=== PATIENT | female | born 1995 | race Caucasian/White ===

== ENCOUNTER 2018-03-12 09:10 | Outpatient (CLI) | payer OTHER ==
[~2018-03-12] VITALS: Ht 170.2 cm; Wt 141.2 kg
[~2018-03-12 09:10] MED LIST: MAG-OX 400400 MG/TAB PO; PROZAC 20MG20 MG PO; ZANAFLEX 4MG TAB4 MG PO
[2018-03-12 09:37] VITALS: BP 135/74; PULSE 83
[2018-03-12 10:25] VITALS: BP 107/70; PULSE 64
[2018-03-12 10:55] LABS: CSF APPEARANCE CLEAR; CSF COLOR COLORLESS; CSF RBC 0 /mm3 (0-0)
[2018-03-12 11:06] LABS: GLUCOSE,CSF 56 mg/dL (40-70); TOTAL PROTEIN,CSF 27 mg/dL (15-45)
[2018-03-12 11:11] LABS: CSF MONONUCLEAR 100 % (70-100); CSF POLYMORPHONUCLEAR 0 % (0-6)
== END 2018-03-12 12:17 | disposition home or self-care (01) ==
LOC: COL.RAD 09:10
PROVIDERS: Psychiatry & Neurology Neurology
DX: G43.109 Migraine with aura, not intractable, without status migrainosus (principal); H47.10 Unspecified papilledema